=== PATIENT | male | born 1975 | race Caucasian/White ===

== ENCOUNTER 2016-10-25 07:15 | Inpatient (IN) | payer OTHER ==
[~2016-10-25 07:15] MED LIST: cefOXitin 2 GM Vial ONE
[2016-10-25] MEDS ORDERED: Celecoxib 200 MG Cap PO ONE (09:10)
[2016-10-25] MEDS ORDERED: Gabapentin 300 MG Cap PO ONE (09:10)
[2016-10-25] MEDS ORDERED: Acetaminophen 500 MG Tab PO ONE (09:10)
[2016-10-25] MEDS ORDERED: Acetaminophen 325 MG Tab PO ONE (09:10)
[2016-10-25] MEDS ORDERED: Scopolamine 1.5 MG Transdermal Patch TRDERM PRN (09:10)
[2016-10-25] MEDS ORDERED: Dextrose 5%-Lactated Ringers 1,000 ML IV SCH (09:30)
[2016-10-25] MEDS ORDERED: fentaNYL 250 MCG/5 ML SDV ONE (09:50)
[2016-10-25] MEDS ORDERED: Midazolam 1 MG/ML 2 ML SDV ONE (09:50)
[2016-10-25] MEDS ORDERED: Succinylcholine/Normal Saline 200 MG/10 ML Syringe ONE (09:51)
[2016-10-25] MEDS ORDERED: Ondansetron 4 MG/2 ML SDV ONE (09:51)
[2016-10-25] MEDS ORDERED: Neostigmine Methylsulfate 1 MG/ML 5 ML Syringe ONE (09:51)
[2016-10-25] MEDS ORDERED: Dexamethasone 4 MG/ML SDV ONE (09:51)
[2016-10-25] MEDS ORDERED: Propofol 200 MG/20 ML SDV ONE (09:51)
[2016-10-25] MEDS ORDERED: Rocuronium 50 MG/5 ML Vial ONE ×2 (09:51→11:22)
[2016-10-25] MEDS ORDERED: Ketamine 500 MG/5 ML MDV IV ONE (10:00)
[2016-10-25] MEDS ORDERED: Lidocaine 2% 100 MG/5 ML Syringe IVPUSH SCH (10:00)
[2016-10-25] MEDS ORDERED: Ketamine 500 MG/5 ML MDV IV SCH (10:00)
[2016-10-25] MEDS ORDERED: Ropivacaine 60 ML, Dexamethasone 8 MG, EPINEPHrine 0.4 MG, Sodium Chloride 0.9% 17.6 ML NERVRT SCH ×4 (10:00)
[2016-10-25] MEDS ORDERED: cefOXitin 2 GM in Sodium Chloride 0.9% 50 ML IV ONE ×2 (10:30→15:00)
[2016-10-25] MEDS ORDERED: Lactated Ringers 1,000 ML ONE ×2 (10:59→12:36)
[2016-10-25] MEDS ORDERED: Phenylephrine 1% 10 MG/ML SDV ONE (12:32)
[2016-10-25] MEDS ORDERED: Sodium Chloride 0.9% 10 ML ONE (12:41)
[2016-10-25] MEDS ORDERED: hydrOXYzine HCl 50 MG/ML SDV IM ONE (15:00)
[2016-10-25] MEDS ORDERED: Ondansetron 4 MG/2 ML SDV IVPUSH PRN (16:11)
[2016-10-25] MEDS ORDERED: Labetalol 20 MG/4 ML Syringe IVPUSH PRN (16:11)
[2016-10-25] MEDS ORDERED: SCOPOLAMINE PATCH ASK TOP SCH (16:11)
[2016-10-25] MEDS ORDERED: hydrOXYzine HCl 50 MG/ML SDV IM PRN (16:11)
[2016-10-25] MEDS ORDERED: diphenhydrAMINE 50 MG/ML SDV IV PRN (16:21)
[2016-10-25] MEDS ORDERED: Metoclopramide 10 MG/2 ML SDV IV PRN (16:58)
[2016-10-25] MEDS: Lidocaine 0.4%/D5W 2 GM/500 ML BAG IV SCH (17:22)
[2016-10-25] MEDS: Pantoprazole 40 MG Vial IV SCH (17:32)
[2016-10-25] MEDS: Heparin Sodium 5,000 Units/ML Vial SUBCUT SCH (17:32)
[2016-10-25] MEDS: MVI, Adult with Vitamin K 10 ML, Thiamine 200 MG, Chromium/Copper/Mang/Selen/Zn 1 ML in... IV SCH ×4 (17:43)
[2016-10-25] MEDS: Acetaminophen 500 MG Tab PO SCH (17:44)
[2016-10-25] MEDS: cefOXitin 2 GM in Sodium Chloride 0.9% 50 ML IV SCH (21:11)
[2016-10-25] MEDS: Gabapentin 250 MG/5 ML Solution ML 470 ML Bottle PO SCH (21:12)
[2016-10-26] MEDS ORDERED: Iohexol 647 MG/ML 50 ML SDV PO SCH (00:45)
[2016-10-26] MEDS: Heparin Sodium 5,000 Units/ML Vial SUBCUT SCH ×3 (02:09→17:18)
[2016-10-26] MEDS: cefOXitin 2 GM in Sodium Chloride 0.9% 50 ML IV SCH ×4 (02:09→20:15)
[2016-10-26] MEDS: Dextrose 5%-Lactated Ringers 1,000 ML IV SCH ×2 (02:09→04:56)
[2016-10-26] MEDS: Lidocaine 0.4%/D5W 2 GM/500 ML BAG IV SCH (02:09)
[2016-10-26] MEDS: Acetaminophen 500 MG Tab PO SCH ×2 (02:10→09:02)
[2016-10-26] MEDS ORDERED: Dextrose 5%-Lactated Ringers 1,000 ML IV SCH (08:30)
[2016-10-26] MEDS: Celecoxib 200 MG Cap PO SCH (09:03)
[2016-10-26] MEDS: Gabapentin 250 MG/5 ML Solution ML 470 ML Bottle PO SCH ×3 (09:03→20:15)
--- NOTE | 2016-10-26 09:09 | PN ---
DATE OF SERVICE: 10/26/2016 The patient has been afebrile with stable vital signs. Pain control is fairly good. He has some discomfort in the periumbilical area, which would be in the lower edge of the range of the . Otherwise, upper GI x-ray looks good. Oral intake thus far has been reasonably good. We will go up to step-3 diet with no solids today, and otherwise continue the perioperative pain management. Lidocaine infusion will be scheduled with this afternoon. Sergei Nolasco MD /[id number]
[2016-10-26] MEDS: SCOPOLAMINE PATCH CHECK TOP SCH (09:38)
--- NOTE | 2016-10-26 09:56 | CR ---
UGI wo KUB HISTORY: evaluate rny FINDINGS: After administration of oral contrast, upright views were obtained. Post operative changes gastric bypass. Surgical drains in place. No evidence for leak. Contrast passes freely into proxima l small bowel loops. IMPRESSION: No evidence for leak or obstruction.
[2016-10-26] MEDS: MVI, Adult with Vitamin K 10 ML, Thiamine 200 MG, Chromium/Copper/Mang/Selen/Zn 1 ML in... IV SCH ×4 (17:15)
[2016-10-26] MEDS: Pantoprazole 40 MG Vial IV SCH (17:18)
[2016-10-26] MEDS: Acetaminophen Soln 650 MG/20.3 ML UD Cup PO SCH (17:18)
[2016-10-26] MEDS: Nortriptyline 10 MG Cap PO SCH (20:16)
[2016-10-27] MEDS: Acetaminophen Soln 650 MG/20.3 ML UD Cup PO SCH ×3 (00:49→17:00)
[2016-10-27] MEDS: cefOXitin 2 GM in Sodium Chloride 0.9% 50 ML IV SCH ×2 (03:34→08:11)
[2016-10-27] MEDS: Heparin Sodium 5,000 Units/ML Vial SUBCUT SCH ×3 (03:34→17:00)
[2016-10-27] MEDS ORDERED: Cyanocobalamin (Vitamin B12) 1,000 MCG/ML SDV IM ONE (09:00)
[2016-10-27] MEDS: Celecoxib 200 MG Cap PO SCH (09:06)
[2016-10-27] MEDS: Gabapentin 250 MG/5 ML Solution ML 470 ML Bottle PO SCH ×3 (09:06→21:09)
[2016-10-27] MEDS: SCOPOLAMINE PATCH CHECK TOP SCH (09:13)
--- NOTE | 2016-10-27 18:01 | PN ---
DATE OF SERVICE: 10/27/2016 SUBJECTIVE: Malik is postop day #2, following a Emmanuel-en-Y gastric bypass surgery. His vital signs have been stable. His activity is good. He had 1190 mL in with 1100 out. TRI drains have put out 73, 133, and 180 of a pink serous drainage. REVIEW OF SYSTEMS: Remainder of review of systems negative for any pertinent positives and negatives. OBJECTIVE: GENERAL: Malik More is a 41-year-old male. He is alert and orientated. VITAL SIGNS: TPR is 98.8, 85, 16, and blood pressure 144/87. HEENT: Negative. NECK: Supple. HEART: Regular rate and rhythm. LUNGS: Clear. ABDOMEN: Incisions look good. TRI drains are intact. He has been having abdominal binders on. EXTREMITIES: Without peripheral edema. ASSESSMENT: Laparoscopic Emmanuel-en-Y gastric bypass surgery, repair of paraesophageal diaphragmatic hernia, 10/26/2015. PLAN: 1. Discontinue TRI drains. 2. Continue oral medications. 3. Continue good pulmonary toilet. 4. We will have dietary instruction today and B12 1000 mcg IM injection. 5. We will evaluate p.r.n. or in a.m. 6. Plan discharge in a.m. Fanny Montoya PA-C /[id number]
[2016-10-27] MEDS: Nortriptyline 10 MG Cap PO SCH (21:09)
[2016-10-28] MEDS: Heparin Sodium 5,000 Units/ML Vial SUBCUT SCH (01:34)
[2016-10-28] MEDS: Acetaminophen Soln 650 MG/20.3 ML UD Cup PO SCH ×2 (01:34→08:05)
[2016-10-28 07:18] VITALS: BP 116/44
[2016-10-28] MEDS: Celecoxib 200 MG Cap PO SCH (08:04)
[2016-10-28] MEDS: Gabapentin 250 MG/5 ML Solution ML 470 ML Bottle PO SCH (08:05)
[2016-10-28] MEDS: SCOPOLAMINE PATCH CHECK TOP SCH (08:05)
[2016-10-28] MEDS ORDERED: Scopolamine 1.5 MG Transdermal Patch TRDERM ONE (09:00)
--- NOTE | 2016-10-28 15:25 | DISCH ---
ADMISSION DIAGNOSES: Morbid obesity, peripheral neuropathy, and large umbilical hernia. DISCHARGE DIAGNOSES: 1. Bilateral TAP block. 2. Laparoscopic Emmanuel-en-Y gastric bypass surgery, liver biopsy, repair of diaphragmatic hernia, and repair of incarcerated epigastric hernia. HISTORY: Malik More is a 41-year-old male with morbid obesity and increase in comorbidities. After preoperative evaluation and discussion of possible risks and possible complications, he wished to proceed with surgical procedure. HOSPITAL COURSE: Malik had his surgery on 10/25/2016. He had no operative complications. On postop day #1, his upper GI was normal. He continued on a step 1 gastric bypass diet, was advanced to a step-2 gastric bypass diet without cereal. His pain was well managed. His activity was good. He received dietary instruction and B12 1000 micromilligram IM injection. On postop day #3, he was able to be discharged to home. Oral intake is adequate. Vital signs were stable. Pain was well managed. He had no postoperative complications. PHYSICAL EXAMINATION: GENERAL: Malik More is a 41-year-old male. Height is 5 feet 10 inches. Weight is 363 pounds. BMI is 52. VITAL SIGNS: TPR is 99.3, 117, 16, blood pressure 116/44. HEENT: Negative. NECK: Supple. HEART: Regular rate and rhythm. LUNGS: Clear. ABDOMEN: Incisions look good. Abdominal binder is on. He has got a pressure dressing over the umbilicus area. EXTREMITIES: Without peripheral edema. DISPOSITION: Discharged to home. CONDITION: Stable and improving. FOLLOWUP APPOINTMENT: Fanny Montoya PA-C, at [place], [place] on 11/09/2016 at 11:00 a.m. HOME MEDICATION: 1. Tylenol 1000 mg q.8 hours, 650 mg/20.3 mL cup. 2. Celebrex 200 mg oral daily #7. 3. Multivitamin chewable 1 tablet twice daily. 4. Nortriptyline (Pamelor) 20 mg at bedtime. 5. B12 1000 micromilligram sublingual daily. 6. Discontinue taking the B complex and the calcium, until directed. DIET AFTER DISCHARGE: Drink 8 to 10 glasses of water a day. Step-2 gastric bypass diet with no cereal. ACTIVITY AFTER DISCHARGE: Walk 8 times daily inside your home. No lifting greater than 10 pounds for 2 weeks. Driving; do not drive on pain medication. May shower. Notify provider if any fever, increased pain, swelling, redness, drainage, nausea, or vomiting. Keep site clean and dry. Wear abdominal binder for 2 weeks and then as tolerated with pressure dressing over the umbilical hernia site and use incentive spirometer 10 times every hour while awake.
--- NOTE | 2016-11-05 09:45 | OR ---
DATE OF PROCEDURE: 10/25/2016 PREOPERATIVE DIAGNOSES: 1. Morbid obesity. 2. Incarcerated epigastric hernia. POSTOPERATIVE DIAGNOSES: 1. Morbid obesity. 2. Marked hepatomegaly. 3. Paraesophageal diaphragmatic hernia. 4. Incarcerated epigastric hernia. OPERATIVE PROCEDURE: 1. Laparoscopic Emmanuel-en-Y gastric bypass along with gastroenterostomy (74107). 2. Cecil-Cut needle liver biopsy (29826). 3. Repair of paraesophageal diaphragmatic hernia (55741). 4. Repair of incarcerated epigastric hernia (79889). ANESTHESIA: General. MARKETING DEVELOPMENT SPECIALIST: Fanny Montoya PA-C. INDICATION FOR PROCEDURE: This is a 41-year-old male presenting with longstanding morbid obesity and increasingly significant comorbidities. After preoperative evaluation and discussion, he wished to proceed with a gastric bypass procedure. Potential risks of the procedure including bleeding, infection, injury to underlying viscera, possible leaks from GI tract, closures, problems with bowel obstruction over time as well as possibility of cardiopulmonary, septic, or hemorrhagic complications leading to were discussed, and the patient wishes to proceed. DESCRIPTION OF PROCEDURE: The patient was taken to the operating room. After general endotracheal anesthesia was induced, he was placed in a lithotomy position. Initially, using sterile technique with continued ultrasound guidance, bilateral transversus abdominal spine blocks were placed and this included injection of 40 mL of saline solution containing ropivicaine, dexamethasone and epinephrine. These subcostal TAP blocks were placed bilaterally and at that point, that phase was concluded. The abdomen was then prepped and draped. Forman catheter was inserted along the gastrointestinal balloon catheter and the abdomen prepped and draped. A 15 cm inferior, 5 cm left of xiphoid process, a transverse incision was made. The peritoneal cavity entered under direct vision with an Optiview trocar, inflated 15 mmHg pressure with CO2. Laparoscope was reinserted. No underlying trocar, insertion site injuries were seen. Following this, 5 additional trocars were placed across the upper-mid abdomen and general exploration was undertaken. The patient noted to have marked hepatomegaly with liver volume being roughly 2 to 3 times normal and liver grossly fatty infiltrated. Cecil-Cut needle biopsy obtained from left lobe of the liver. Minimal bleeding from the biopsy sites was controlled with electrocautery. At this point, the epigastric hernia was identified that contained some incarcerated omentum with it using a combination of Harmonic scalpel dissection along with external pressure. The hernia contents were eventually delivered from the field. At this point, the omentum was divided in the midline up to level of the transverse colon. This allowed identification of the small bowel with ligament of Treitz. Small bowel was then traced out 200 cm distal to that point and was divided transversely with a ANASTASIA stapler. Small bowel was then traced out an additional 150 cm where the [id number]-di-ayay enteroenterostomy was accomplished with internal firing of the Endo-ANASTASIA 60 mm stapler, opening was then closed transversely with same stapler and angles anastomosed and mesenteric defect approximated with some 0 Ethibond stitch along with fibrin sealant. The divided end of the Emmanuel limb was then from the mesentery for a few centimeters, which allowed an antecolic position of the Emmanuel limb up to the level of the gastroesophageal junction without tension. At this point, the liver was retracted anteriorly. The patient was noted to have a moderate- sized paraesophageal diaphragmatic hernia and significant paraesophageal component to it, consisting of some perigastric fat as well as gastric fundus prolapsing in a plane anterior and just to the left of the course of the esophagus. The hernia was reduced at this point. The peritoneum and incised and reflected downward. An anterior repair of the diaphragmatic hernia with 0 Ethibond sutures were reinforced with PTFE pledgets was then accomplished. At this point, the gastrointestinal catheter was inflated 15 mL and pulled up snugly against the EG junction. Gastric wall over the apex balloon was then marked with electrocautery and balloon catheter was deflated and pulled up in the esophagus. The lesser omental tissue adjacent to gastric cardia was then incised allowing the dissection behind the stomach at that level. Pouch formation was then initiated with a transverse firing of the ANASTASIA stapler at the level of the cauterized dionna in the gastric cardia. The pouch was then completed with some additional firings of ANASTASIA stapler up to and through the angle of His. Upon completion of the pouch, both staple lines were noted to be intact. The anvil of 25 mm EEA stapler was attached to Kent sump type tube that was brought down through a small opening in the gastric pouch allowing the anvil likewise to be pulled down to within the gastric pouch. The divided end of the Emmanuel limb was then opened and the main body of the EEA stapler passed several centimeters into the lumen of the small bowel brought up, the anvil united with it, thus creating a gastrojejunostomy. Upon removal of stapler, double donuts of mucosa were noted within it. Small bowel was closed off with a vascular staple line. Gastrojejunostomy was then reinforced with 3-0 Vicryl seromuscular stitch along with fibrin sealant with leak test and this accomplished with injection of 120 mL of air in the gastric pouch while this was submerged with cefoxitin-containing saline solution. No leaks were identified. At this point, the camera port was moved up into one of the epigastric sites and using the endoscopic suture passer, small stab wounds were placed on the right side of the epigastric hernia and then using interrupted 0 Ethibond sutures with closure being designed in the vertical midline. These sutures were then placed with one end of the suture being left and the other on the right at the hernia defect. These were then pulled out through the opening in the stab wound on the right side of the hernia. Once these sutures were in place, a single Tejinder-Betancourt drain was then placed through the left lateral trocar site and positioned adjacent to the gastrojejunostomy. The remaining trocars were removed and the peritoneal cavity deflated. After removal of the peritoneal CO2, the epigastric hernia, sutures were then tied and this appeared to satisfactorily close off the hernia. The drain was sutured to the skin with some 4-0 Vicryl stitch and the skin at each of the remaining incisions closed with 0 Vicryl stitch. The patient was taken to the recovery room in satisfactory condition. Physician sociology research assistant, Fanny Montoya, played an essential role in assisting in this case, helping to position the patient, retract structures as needed, as well as suturing and cutting sutures when indicated. Her presence improved patient safety and decreased operative time. Sergei Nolasco MD /[id number]
== END 2016-10-28 08:53 | disposition home or self-care (01) | DRG 620 ==
LOC: EDSTATUS 07:15 → JP.SDS 08:49 → JP.SDSSCHI 08:49 → JP.2SS 15:20
PROVIDERS: ADMIT Surgery; ATTEND Surgery
PROC: 0BQR4ZZ (ICD-10-PCS; principal; 2016-10-25)
PROC: 3E0T3CZ (ICD-10-PCS; principal; 2016-10-25)
PROC: 0D164ZA Bypass Stomach to Jejunum, Percutaneous Endoscopic Approach (ICD-10-PCS; principal; 2016-10-25)
PROC: 0BQS4ZZ (ICD-10-PCS; principal; 2016-10-25)
PROC: 0WQF4ZZ Repair Abdominal Wall, Percutaneous Endoscopic Approach (ICD-10-PCS; principal; 2016-10-25)
PROC: 0FB24ZX Excision of Left Lobe Liver, Percutaneous Endoscopic Approach, Diagnostic (ICD-10-PCS; principal; 2016-10-25)
DX: E66.01 Morbid (severe) obesity due to excess calories (principal); K43.6 Other and unspecified ventral hernia with obstruction, without gangrene; Z68.43 Body mass index [BMI] 50.0-59.9, adult; K44.9 Diaphragmatic hernia without obstruction or gangrene; G62.9 Polyneuropathy, unspecified; R16.0 Hepatomegaly, not elsewhere classified; Z88.8 Allergy status to other drugs, medicaments and biological substances; K76.0 Fatty (change of) liver, not elsewhere classified
CPT/HCPCS: 36415; 74240; 74240-26; 82962; 83735; 83880; 84100; 85027; 86850; 86900; 86901; 88307; 94762; A9270-GY; C9113; J0171; J0694; J1100; J1644; J2001; J2250; J2370; J2405; J2704; J2795; J3010; J3410; J3411; J3420; J7030; J7042; J7050; J7120; Q9967

== ENCOUNTER → 2016-11-24 | Day surgery (SDC) | payer OTHER ==
[~2016-11-24] MED LIST changes: +Cyanocobalamin (Vitamin B12) 1,000 MCG/ML SDV IM ONE; +Glycopyrrolate 0.2 MG/ML 2 ML SYRINGE IVPUSH ONE; +HYDROmorphone 2 MG Tab PO PRN; +Lactated Ringers 1,000 ML IV SCH; +MVI, Adult with Vitamin K 10 ML, Thiamine 200 MG, Chromium/Copper/Mang/Selen/Zn 1 ML in... IV ONE; +Midazolam 1 MG/ML 2 ML SDV ONE; +Pantoprazole 40 MG Vial IVPUSH ONE; +Propofol 200 MG/20 ML SDV ONE; -cefOXitin 2 GM Vial ONE; +fentaNYL 100 MCG/2 ML SDV ONE
[2016-11-24 09:37] VITALS: BP 114/73
--- NOTE | 2016-11-28 14:44 | OR ---
DATE OF PROCEDURE: 11/24/2016 PREOPERATIVE DIAGNOSIS: Stricture gastrojejunostomy. POSTOPERATIVE DIAGNOSIS: Stricture gastrojejunostomy. PROCEDURE: Upper GI endoscopy with dilation gastrojejunostomy. INDICATIONS: This is a 41-year-old, recently status post Emmanuel-en-Y gastric bypass, presenting with symptoms of stricturing at his gastrojejunostomy after preoperative evaluation and discussion, he wished to proceed with the upper endoscopy with dilation as indicated. Potential risks including bleeding and perforation were discussed, and the patient wishes to proceed. DETAILS OF PROCEDURE: The patient was taken to the operating room and placed in a left lateral decubitus position. IV sedation was administered, after which the upper GI endoscope was passed orally through the length of the esophagus and into the gastric pouch. No retained food or fluid was noted. The patient was noted to have a moderate stricture at the gastrojejunostomy. A Bard gastrointestinal catheter was then centered across the anastomosis and inflated to 45-Welsh size. This was held in position for 1 minute, after which the balloon catheter was deflated and withdrawn. The scope could easily be passed through the anastomosis with no complications noted. The patient was taken to the recovery room in satisfactory condition. Sergei Nolasco MD /[id number]
--- NOTE | 2016-11-29 13:10 | OR ---
DATE OF PROCEDURE: 11/24/2016 PREOPERATIVE DIAGNOSIS: Probable stricture gastrojejunostomy. POSTOPERATIVE DIAGNOSIS: Stricture gastrojejunostomy. OPERATIVE PROCEDURE: Upper GI endoscopy with dilation of gastrojejunostomy ([id number]). ANESTHESIA: IV sedation. INDICATION FOR PROCEDURE: A 41-year-old status post Emmanuel-en-Y gastric bypass on 10/25/2016 presents now with symptoms suggestive of stricturing at his gastrojejunostomy. Plan is to proceed with upper GI endoscopy with dilation as indicated. Potential risks including bleeding and perforation were discussed, and the patient wishes to proceed. DETAILS OF PROCEDURE: The patient was taken to the operating room and placed in a left lateral decubitus position. IV sedation was administered, after which the upper GI endoscope was passed orally through the length of the esophagus into the gastric pouch. The patient was noted to have a quite a bit of inflammation in the gastric pouch and some blood present, but no active bleeding per se. The gastrojejunostomy was noted to be quite narrowed. Initially, a TuckerNuck gastrointestinal balloon catheter was inserted. This could only go beyond a little way past the anastomosis; initially it was inflated to 36-Czech size. Next, a 45-Czech size catheter was placed and the scope could not be passed through that area. Given this, a Savary guidewire was then passed. This likewise passed a little bit further on the other side, and a 48-Czech dilator was passed with roughly half of the thickness of the dilator getting into the area of the gastrojejunostomy. At that point, both the guidewire and dilator were removed. The area was inspected and a satisfactory opening to all oral intake was present. At this point, we will start the patient on some Protonix and then see him back next Tuesday, i.e. in six days, with a planned repeat upper endoscopy and dilation at that time. At that point, hopefully we can get either the guidewire or balloon dilators somewhat more distally to allow a more satisfactory dilation. Sergei Nolasco MD /[id number]
== END ==
LOC: JP.SDS 05:54
PROVIDERS: ATTEND Surgery
DX: K94.19 Other complications of enterostomy (principal); R13.10 Dysphagia, unspecified; K21.9 Gastro-esophageal reflux disease without esophagitis
CPT/HCPCS: 43245; A9270; C9113; J2250; J2704; J3010; J3411; J3420; J7120

== ENCOUNTER → 2016-11-30 | Day surgery (SDC) | payer OTHER ==
[~2016-11-30] MED LIST changes: -HYDROmorphone 2 MG Tab PO PRN; +Lactated Ringers 1,000 ML IV ONE; -Lactated Ringers 1,000 ML IV SCH; +Ondansetron 4 MG/2 ML SDV IVPUSH ONE; -Pantoprazole 40 MG Vial IVPUSH ONE
[2016-11-30 11:51] VITALS: BP 117/83
--- NOTE | 2016-12-06 11:38 | OR ---
DATE OF PROCEDURE: 11/30/2016 PREOPERATIVE DIAGNOSIS: Stricture at gastrojejunostomy. POSTOPERATIVE DIAGNOSIS: Stricture at gastrojejunostomy. OPERATIVE PROCEDURE: Upper GI endoscopy with dilation of gastrojejunostomy ([id number]). ANESTHESIA: IV sedation. INDICATION FOR PROCEDURE: The patient is status post Emmanuel-en-Y gastric bypass on 10/25/16. Last week, he had a stricture, which was dilated, but the degree of dilation was felt to be unsatisfactory related to blood and bleeding in the area. He, however, has not had problems with maintaining liquid oral intake in the meantime and the plan was to proceed with a repeat upper endoscopy with dilation as indicated. Potential risks including bleeding and perforation were discussed, and the patient wishes to proceed. DETAILS OF PROCEDURE: The patient was taken to the operating room and placed in a left lateral decubitus position. IV sedation was administered after which the upper GI endoscope was passed orally through the length of the esophagus and into the gastric pouch. The patient was noted to have moderate stricture of the gastrojejunostomy. Using fluoroscopic surveillance, the Bard gastrointestinal balloon catheter was centered across the anastomosis. At this time, we were able to obtain very satisfactory positioning of the balloon catheter, which was then inflated to 36-English size. This was held in position for 1 minute, after which the balloon catheter was deflated and withdrawn. The scope could easily then be passed through the anastomosis. No complications were noted, and the procedure was concluded. The patient was taken to the recovery room in satisfactory condition. Sergei Nolasco MD /[id number]
== END ==
LOC: JP.SDS 07:22
PROVIDERS: ATTEND Surgery
PROC: 0D768ZZ Dilation of Stomach, Via Natural or Artificial Opening Endoscopic (ICD-10-PCS; principal; 2016-11-30)
DX: K91.89 Other postprocedural complications and disorders of digestive system (principal); K95.89 Other complications of other bariatric procedure; Y83.2 Surgical operation with anastomosis, bypass or graft as the cause of abnormal reaction of the patient, or of later complication, without mention of misadventure at the time of the procedure; R13.10 Dysphagia, unspecified; K21.9 Gastro-esophageal reflux disease without esophagitis
CPT/HCPCS: 43245; J2250; J2405; J2704; J3010; J3411; J3420; J7120